=== PATIENT | female | born 1960 | race Caucasian/White ===

== ENCOUNTER 2019-05-02 10:52 | Day surgery (SDC) | payer MEDICARE, BC ==
[2019-04-28 14:47] VITALS: BMI 35.3
[~2019-05-02 10:52] MED LIST: DEXAMETHASONE SOD PHOSPHATE 10 MG/ML 1 ML VIAL IV ONE; HEPARIN SODIUM,PORCINE 5,000 UNIT/ML 1 ML VIAL SQ ONE; HYDROmorphone 0.5 MG/0.5 ML SYRINGE IVP PRN; LACTATED RINGERS 1,000 ML IV SCH; ONDANSETRON 4 MG/2 ML VIAL IVP ONE; Pre Op ABX Message 1 EACH MISC MISCELLANE ONE; SCOPOLAMINE 1.5MG/72HR PATCH TRANSDERM ONE
[2019-05-02 11:48] VITALS: RESP 16; TEMP 97.5
[2019-05-02] MEDS: MIDAZOLAM 2 MG/2 ML VIAL IV PRN ×2 (12:02→12:04)
[2019-05-02] MEDS ORDERED: fentaNYL (PF) 50 MCG/ML 2 ML AMP IV ONE ×2 (12:02→12:04)
--- NOTE | 2019-05-02 12:16 | P.ANPRN ---
Procedure Note - Anesthesia - Nerve Block Performed Right Axillary Single Time Out Performed: Yes Date of Procedure: 05/02/19 Procedure Start Time: 12:03 Procedure Stop Time: 12:13 Location of Patient: PreOp Indication: Acute Post-Operative Pain, Requested by Surgeon Specifically requested for management of pain by DrJerald: Familia Jorge Sedation Type: Sedate with meaningful contact maintained Preparation: Sterile Prep Position: Supine Catheter: None Needle Types: Facet Needle Gauge: 20 Ultrasound used to visualize needle placement: Yes Ultrasound used to observe medication spread: Yes Injectate: 0.5% Ropivacaine (see comment for volume) (30 mls) Blood Aspirated: No Pain Paresthesia on Injection Noted: No Resistance on Injection: Normal Image Stored and Saved: Yes Events: Uneventful and Well Tolerated
[2019-05-02] MEDS ORDERED: PROPOFOL 10 MG/ML 20 ML VIAL IV ONE (13:03)
[2019-05-02] MEDS ORDERED: MIDAZOLAM 2 MG/2 ML VIAL ONE (13:03)
[2019-05-02] MEDS ORDERED: ROPIVACAINE 5 MG/ML 30 ML VIAL ONE (13:03)
[2019-05-02] MEDS ORDERED: fentaNYL (PF) 50 MCG/ML 2 ML AMP ONE (13:03)
[2019-05-02] MEDS ORDERED: LIDOCAINE 1% INJ 10MG/ML (20 ML MDV) ONE (13:03)
[2019-05-02] MEDS ORDERED: PHENYLEPHRINE-0.9% NACL SYG 1 MG/10 ML SYRINGE ONE (13:03)
[2019-05-02 15:00] VITALS: BP 118/59; PULSE 60
--- NOTE | 2019-05-03 05:30 | OP ---
OPERATIVE REPORT DATE OF SURGERY: 05/02/2019. PREOPERATIVE DIAGNOSES: 1. Pancarpal osteoarthritis, right wrist. 2. Distal radioulnar joint arthritis, right wrist. FINAL DIAGNOSES: 1. Pancarpal osteoarthritis, right wrist. 2. Distal radioulnar joint arthritis, right wrist. PROCEDURE: 1. Fusion right wrist with internal fixation. 2. Excision of distal ulna. SET UP AND CHARGER: Ruby Carolina NP. 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 There really are no salvage procedures to do partial fusion etc. and complete wrist fusion is indicated. Distal ulna is being incised because it is arthritic changes at the DRUJ and effect on the carpus. DESCRIPTION OF PROCEDURE: A 58-year-old woman was taken operative suite, given IV sedation with supplemented axillary block performed by department of anesthesia in the preop holding area, which worked well. Her right arm was prepped and draped in the usual manner. It was elevated, exsanguinated and cuff was inflated to 250 mmHg. A dorsal midline incision was made across the wrist distally to approximately mcfp up the third metacarpal. Skin was dissected bluntly and sharply under 4.5 loupe magnification. Hemostasis acquired with pressure electrocautery as necessary. The extensor retinaculum was incised and all extensor tendons were intact at this time with no signs of rupture. The exception was the insertion of the base of the extensor carpi radialis brevis, which was attenuated. This was of no consequence since the wrist is being fused anyway. Capsulotomy was performed and care was taken to denervate the wrist in a routine manner. Synovectomy was performed for visualization. The remaining cartilage was removed with a rongeur to cancellous bone. In addition, the trough was made in the mid carpus and distal radius to accommodate the plate. The plate was applied midline and secured with 3 cortical screws in the base of the metacarpal. A metacarpal screw and the remaining 4 or 5 screws holding the plate along the radius. Fixation was secure. Most of the screws were nonlocking. However, purchase was suspect in a couple places and locking screws were used. The wound was thoroughly irrigated and attention was turned to the distal ulna. Dissection was taken underneath the skin to the dorsum of the distal ulna. A longitudinal approach was performed. Again, capsulotomy was performed. Prior reconstructive surgery was demonstrated. A Tycron suture remained in the soft tissue which was removed as best as possible. Osteotomy was performed with a bone biter. [place] was used to smooth the surface. The distal ulna was then excised combination of sharp and blunt dissection. Synovectomy was further performed at this level. The wounds were thoroughly irrigated. At this point, the capsular closure over the dorsal wrist was performed with 3-0 PDS suture. The tourniquet was then released. Hemostasis was satisfactory. Wound closure was done with running 4-0 Vicryl followed by 5-0 nylon suture. Soft bulky dressing was applied. The patient was taken to the recovery room in satisfactory condition. MMODL / IJN: [id number] /
== END 2019-05-02 15:33 | disposition home or self-care (01) ==
LOC: OR 10:52
PROVIDERS: ATTEND Orthopaedic Surgery Hand Surgery
DX: M19.031 Primary osteoarthritis, right wrist (principal); E66.9 Obesity, unspecified; I25.10 Atherosclerotic heart disease of native coronary artery without angina pectoris; I50.9 Heart failure, unspecified; I11.0 Hypertensive heart disease with heart failure; I25.2 Old myocardial infarction; E78.5 Hyperlipidemia, unspecified; J44.9 Chronic obstructive pulmonary disease, unspecified; K21.9 Gastro-esophageal reflux disease without esophagitis; F32.9 Major depressive disorder, single episode, unspecified; Z91.040 Latex allergy status; Z91.030 Bee allergy status; Z91.09 Other allergy status, other than to drugs and biological substances; Z95.1 Presence of aortocoronary bypass graft; Z95.4 Presence of other heart-valve replacement; Z87.891 Personal history of nicotine dependence; Z86.73 Personal history of transient ischemic attack (TIA), and cerebral infarction without residual deficits; Z79.51 Long term (current) use of inhaled steroids; Z79.02 Long term (current) use of antithrombotics/antiplatelets; Z79.899 Other long term (current) drug therapy; Z90.710 Acquired absence of both cervix and uterus; Z90.89 Acquired absence of other organs; Z98.890 Other specified postprocedural states; Z68.35 Body mass index [BMI] 35.0-35.9, adult
CPT/HCPCS: 25800; 64415; 76942; C1713; J2250; J0690; J2001; J3010; J2795; J2370; J2704